=== PATIENT | female | born 1945 | race Caucasian/White ===

== ENCOUNTER 2017-08-25 15:09 | Observation (INO) ==
[2017-08-25] MEDS ORDERED: Ipratropium/Albuterol Neb 3 ML IH ONE (15:37)
[2017-08-25] MEDS ORDERED: 0.9 % Sodium Chloride 1,000 ML IVC ONE (15:38)
[2017-08-25] MEDS ORDERED: MethylPREDNISolone 40 MG/ML VIAL IVP ONE (15:40)
--- NOTE | 2017-08-25 15:41 | Emergency Department Note ---
Disposition Clinical Impression: COPD exacerbation Disposition: Admitted As Inpatient Condition: Fair Time of Disposition: 17:07 General Adult HPI - General Chief complaint: ED Upper Respiratory Infection Stated complaint: low O2, sent from urgent care Time Seen by Provider: 08/25/17 15:26 Source: patient Mode of arrival: ambulatory Limitations: no limitations Nursing Notes Reviewed: Yes Vital Signs Reviewed: Yes - History of Present Illness HPI Narrative: 72-year-old female with former history of smoking 3 years ago presents for evaluation of cough and shortness of breath. Patient was seen in urgent care prior to arrival. Patient was evaluated there for 1 week's worth of cough noted a yellow productive. Subjective fevers over the past week. No nausea or vomiting. No URI symptoms. Denying any chest pain. Patient does feel short of breath. Patient states she has no action at home. At the urgent care the patient received steroids as well as a breathing treatment. Patient also had a negative flu swab. Pain Scale: 0 - Related Data Home Medications Medication Instructions Recorded Confirmed Aspirin 81 mg PO DAILY 04/29/15 07/16/16 Ramipril [Altace] 10 mg PO DAILY 04/29/15 07/16/16 Folic Acid 08/25/17 Methotrexate 08/25/17 08/25/17 Allergies Allergy/AdvReac Type Severity Reaction Status Date / Time No Known Allergies Allergy Verified 08/25/17 13:07 All systems ED: reviewed and negative except as stated. Constitutional: Reports: as per HPI, fever Eyes: Reports: as per HPI ENT ED: Reports: as per HPI Cardiovascular: Reports: as per HPI. Denies: chest pain Respiratory: Reports: as per HPI, cough, dyspnea, sputum production Gastrointestinal: Reports: as per HPI Genitourinary: Reports: as per HPI Musculoskeletal: Reports: as per HPI Integumentary: Reports: as per HPI Neurological: Reports: as per HPI Psychiatric: Reports: as per HPI Endocrine: Reports: as per HPI Hematological/Lymphatic: Reports: as per HPI Past Medical History - Past Medical History Attestation: Yes The following information was validated with the patient. Medical history: Reports: non-contributory, hypertension Surgical history: Reports: appendectomy Psychiatric history: Reports: no psych history - Social History Smoking Status: Former smoker Smokeless Tobacco Status: No Alcohol use: Reports: none Drug use: Reports: none Physical Exam - General Limitations: no limitations General appearance: alert, in no apparent distress - Head Head exam: atraumatic, normocephalic, normal inspection - Eye Eye exam: Present: normal appearance, PERRL, EOMI - ENT ENT exam: normal exam, normal oropharynx, mucous membranes moist - Neck Neck exam: Present: normal inspection, full ROM, trachea midline - Chest Chest inspection: Present: normal inspection, symmetric chest wall rise - Respiratory Respiratory exam: Present: accessory muscle use, prolonged expiratory phase, other (Diffusely diminished breath sounds) - Cardiovascular Cardiovascular exam: Present: normal rhythm, tachycardia. Absent: systolic murmur - Abdominal Exam Abdominal exam: Present: soft, Non-Tender. Absent: tenderness, distention, guarding, rebound, rigidity - Extremities Exam Extremities exam: Present: normal inspection, full ROM. Absent: tenderness, pedal edema - Back Exam Back exam: Present: normal inspection, full ROM. Absent: tenderness - Neurological Exam Neurological exam: Present: alert, oriented X3 - Skin Skin exam: Present: warm, dry, intact, normal color Course Course Narrative: Patient seen and examined. Patient is hypoxic on room air. Patient requiring oxygen supplementation. Patient will get basic lab work, EKG. Chest x-ray was obtained at urgent care. Patient also negative flu swab. Patient will require admission for further respiratory support monitoring giving her history and her oxygen requirement. - Reevaluation(s) Reevaluation #1: Patient seen and examined. Patient's breathing seems less labored. Still has diminished lung sounds throughout. Time: 17:06 Vital Signs Temperature 98.8 F 08/25/17 15:18 Pulse Rate 130 08/25/17 15:18 Respiratory Rate 22 08/25/17 15:18 Blood Pressure 116/54 08/25/17 15:18 O2 Sat by Pulse Oximetry 87 08/25/17 15:18 Temperature 98.8 F 08/25/17 15:18 Pulse Rate 120 08/25/17 17:34 Respiratory Rate 13 08/25/17 17:34 Blood Pressure 101/48 08/25/17 17:34 O2 Sat by Pulse Oximetry 94 08/25/17 17:34 Oxygen Delivery Oxygen Delivery Nasal Cannula Medical Decision Making - [facility] Narrative Medical decision making narrative: 72-year-old female patient for evaluation of dyspnea. Notes to be a week's worth of symptoms. Patient does have a history of smoking in the past. Symptoms are consistent with a COPD exacerbation. Patient's EKG reveals multifocal atrial tachycardia. Patient was given 2 g of magnesium as well as a liter of crystalloid. Patient was treated with nebs as well as steroids. Patient's chest x-ray obtained urgent care prior to arrival shows no acute findings. Given the patient's symptoms and a productive cough she was started on Levaquin. Patient did not have nausea requirement at home however is requiring supplemental oxygen. Patient will be admitted to the hospital service for further evaluation moderate regarding her respiratory status. - Lab Data Lab results reviewed: Yes I reviewed the patient's lab results. Result diagrams: 08/25/17 15:54 08/25/17 15:54 Lab Results 08/25/17 08/25/17 08/25/17 Range/Units 15:54 15:54 15:54 WBC 12.7 H (4.3-11.1) K/mcL RBC 4.40 (3.82-4.97) M/mcL Hgb 13.8 (11.5-15.4) g/dL Hct 43.6 (35.3-44.9) % MCV 99.1 (83.0-100.0) fL MCH 31.4 (28.0-33.3) pg MCHC 31.7 (31.6-35.5) g/dL RDW 13.2 (11.5-14.5) % Plt Count 326 (140-400) K/mcL MPV 9.8 (9.4-12.4) fL Immature Gran % 0.6 (0-4) % Seg Neutrophils % 83.8 % Lymphocytes % 7.2 % Monocytes % 7.2 % Eosinophils % 0.9 % Basophils % 0.3 % Neutrophils # 10.7 H (1.6-8.9) K/mcL Lymphocytes # 0.9 (0.6-4.6) K/mcL Monocytes # 0.9 (0.0-1.3) K/mcL Eosinophils # 0.1 (0.0-0.6) K/mcL Basophils # 0.0 (0.0-0.2) K/mcL Immature Plt Fraction 3.8 (1.1-6.1) % Sodium 136 (136-145) mEq/L Potassium 3.7 (3.5-5.1) mEq/L Chloride 100 (98-107) mEq/L Carbon Dioxide 26 (23-29) mEq/L BUN 20 (8-23) mg/dL Creatinine 1.14 (0.60-1.20) mg/dL Est GFR ( Amer) 57 L (> 60) Est GFR (Non-Af Amer) 47 L (> 60) BUN/Creatinine Ratio 18 (6-26) Glucose 148 H (70-105) mg/dL Calculated Osmolality 287 (280-300) Calcium 9.1 (8.6-10.3) mg/dL Troponin I < 0.03 (< 0.04) ng/mL B-Natriuretic Peptide (Less than 100) pg/mL 08/25/17 Range/Units 15:54 WBC (4.3-11.1) K/mcL RBC (3.82-4.97) M/mcL Hgb (11.5-15.4) g/dL Hct (35.3-44.9) % MCV (83.0-100.0) fL MCH (28.0-33.3) pg MCHC (31.6-35.5) g/dL RDW (11.5-14.5) % Plt Count (140-400) K/mcL MPV (9.4-12.4) fL Immature Gran % (0-4) % Seg Neutrophils % % Lymphocytes % % Monocytes % % Eosinophils % % Basophils % % Neutrophils # (1.6-8.9) K/mcL Lymphocytes # (0.6-4.6) K/mcL Monocytes # (0.0-1.3) K/mcL Eosinophils # (0.0-0.6) K/mcL Basophils # (0.0-0.2) K/mcL Immature Plt Fraction (1.1-6.1) % Sodium (136-145) mEq/L Potassium (3.5-5.1) mEq/L Chloride (98-107) mEq/L Carbon Dioxide (23-29) mEq/L BUN (8-23) mg/dL Creatinine (0.60-1.20) mg/dL Est GFR ( Amer) (> 60) Est GFR (Non-Af Amer) (> 60) BUN/Creatinine Ratio (6-26) Glucose (70-105) mg/dL Calculated Osmolality (280-300) Calcium (8.6-10.3) mg/dL Troponin I (< 0.04) ng/mL B-Natriuretic Peptide 145 H (Less than 100) pg/mL - Radiology Data Radiology results reviewed: Yes I reviewed the patient's radiology results. XR/XR chest 2V IMPRESSION: Emphysema with bilateral lower lobe vascular crowding. No convincing evidence of superimposed acute process. D/ / 08/25/2017 14:11:21 Jasson Larkin MD / prerna - EKG Data EKG #1 EKG attestation: Yes I reviewed and interpreted this EKG. EKG shows normal: sinus rhythm Rate: tachycardia Rhythm: other (MAT) Mchenry/QRS: LAHB/LAFB P waves: BRENNAN Interpretation: no acute changes, other (MAT) S.B.A.R. - S.B.A.RBentley Situation: Demographics Background: Presenting Complaint Assessment: Vital Signs, Course and respsone to treatment, Patient/Family Expectation Recommendation: Barrier(s) to disposition, Recommendation based on pending studies, treatments, or consults S.B.A.RBentley Report Given to: Dr. Kirill Stinson Repor Time: 17:19 Attestation Statement - Attestation Attestation: I examined this patient and my medical decision-making was reviewed with the Resident Physician. I agree with the documented findings, disposition and treatment plan as described except to the extent set forth below. 72-year-old female sent to the emergency department from urgent care because of coughing and dyspnea. She presented to the urgent care with cough, dyspnea and hypoxia. She received aerosols with significant improvement but continued with hypoxia. Denies any chest pain. No fevers or chills. Cough is nonproductive. No recent long-distance travel or periods of prolonged immobilization. No recent surgeries. Patient is awake alert and interactive. Minimal tachypnea. Oropharynx clear. Membranes moist. Chest is with diminished breath sounds bilaterally. No focal rhonchi or consolidation. Cardiac exam tachycardic and intermittently irregular. Frequent ectopy. Abdomen soft, nondistended and nontender. Extremities warm and dry without asymmetric edema. No calf tenderness. Chest x-ray consistent with COPD but no infiltrate. Received sequential DuoNeb treatments as well as IV magnesium continues with hypoxia requiring supplemental oxygen. She will be admitted for supplemental oxygen and further treatment of her COPD exacerbation.
[2017-08-25] MEDS ORDERED: Levofloxacin 750 MG/150 ML 750 MG/150 ML BAG IVPB ONE (15:42)
[2017-08-25 16:04] LABS: Basophils % 0.3 %; Eosinophils # 0.1 K/mcL (0.0-0.6); Eosinophils % 0.9 %; Hematocrit 43.6 % (35.3-44.9); Hemoglobin 13.8 g/dL (11.5-15.4); Immature Granulocytes % 0.6 % (0-4); Immature Platelets 3.8 % (1.1-6.1); Lymphocytes # 0.9 K/mcL (0.6-4.6); Lymphocytes % 7.2 %; Mean Corpuscular HGB Conc 31.7 g/dL (31.6-35.5); Mean Corpuscular Hemoglobin 31.4 pg (28.0-33.3); Mean Corpuscular Volume 99.1 fL (83.0-100.0); Mean Platelet Volume 9.8 fL (9.4-12.4); Monocytes # 0.9 K/mcL (0.0-1.3); Monocytes % 7.2 %; Neutrophils # 10.7 K/mcL (1.6-8.9); Platelet Count 326 K/mcL (140-400); Red Cell Distribution Width 13.2 % (11.5-14.5); Segmented Neutrophils % 83.8 %
[2017-08-25 16:44] LABS: Calcium 9.1 mg/dL (8.6-10.3); Potassium 3.7 mEq/L (3.5-5.1)
[2017-08-25] MEDS ORDERED: Naloxone 0.4 MG/ML INJ IVP PRN (20:06)
[2017-08-25] MEDS ORDERED: Acetaminophen 325 MG TABLET PO PRN (20:06)
[2017-08-25] MEDS ORDERED: Ipratropium/Albuterol Neb 3 ML IH PRN (20:13)
--- NOTE | 2017-08-25 20:21 | Internal Med History&Physical ---
Date of Encounter: 08/25/17 Time of Encounter: 19:30 Assessment and Plan (1) Rheumatoid arthritis Current visit: Yes Status: Acute Stable, cont home medication and f/u as outpatient. Pt clearly told me she is not chronic steroid user. Qualifiers: Rheumatoid arthritis location: unspecified site Rheumatoid factor presence : unspecified presence Qualified Code(s): M06.9 - Rheumatoid arthritis, unspecified (2) DVT prophylaxis Current visit: Yes Status: Acute Heparin SC (3) COPD exacerbation Current visit: Yes Status: Acute Pt has increased cough and SOB, CXR shows emphasemous changes, no wheezes when I saw her. Never diagnosed as COPD but has hx of smoking. - COPD exacerbation vs acute bronchitis vs early pneumonia - Place pt on abx, steroid and bronchidilator - O2 supportive treatment. - Robitussin for cough. - Track sputum culture (4) Hypoxia Current visit: No Status: Acute Management as above. Evaluate the needs of home O2 upon discharge. Internal Medicine - H&P: HPI Chief complaint: SOB Admitted From: Home Plans for Post Hospital Care: Home History of present illness: Ms. Cadena is a 72 year old female with Hx of RA on MTX present to ER for SOB and cough. Pt said she is sick in last week, with runny nose, cough, and yellowish sputum. Pt has SOB as well. Pt denies sore throat, chest pain, nausea, or diaphoresis. She went to urgent care today, Flu test negative, CXR shows emphosemous changes. Pt was found low SpO2 at 82-83%. She was treated with solumendral and duoneb and admitted for further management. Past Med Surg Social Fam HX - Past Medical History Medical history: non-contributory, hypertension Psychiatric history: no psych history - Past Surgical History Surgical History: appendectomy - Social History Smoking Status: Former smoker Smokeless Tobacco Status: No Alcohol use: none Drug use: none - Family History Mother History Unknown: Yes Internal Medicine - H&P: Meds Aspirin 81 mg PO DAILY 04/29/15 [History] Ramipril [Altace] 10 mg PO DAILY 04/29/15 [History] Folic Acid 08/25/17 [History] Methotrexate 08/25/17 [History] 3 Allergy/AdvReac Type Severity Reaction Status Date / Time No Known Allergies Allergy Verified 01/21/18 13:07 All Systems PM: A 10-system review of systems was performed and is negative for pertinent findings except as documented above in the HPI. - Constitutional Vitals: Temp Pulse Resp BP Pulse Ox 98.8 F 120 22 99/49 94 08/25/17 15:18 08/25/17 17:34 08/25/17 19:02 08/25/17 19:02 08/25/17 17:34 General appearance: Present: A&O X 3, no acute distress, answers questions appropriately - Head Head exam: Present: atraumatic, normocephalic - Eye Eye exam: Present: PERRL, conjuntiva pink, sclera anicteric Pupils: Present: PERRL - Neck Neck exam general surgery: Present: supple, trachea midline. Absent: lymphadenopathy - Respiratory Respiratory exam: Present: CTAB. Absent: accessory muscle use, rales, rhonchi, wheezes Additional comments: Coarse breath sound B/L no wheezes - Cardiovascular Cardiovascular exam: Present: RRR, +S1, +S2. Absent: diastolic murmur, gallop, rubs, systolic murmur - GI/Abdominal GI/Abdominal exam: Present: normal bowel sounds, soft, no peritoneal signs. Absent: distended, tenderness - Extremities Exam Extremities exam: Present: warm, radial pulses palpable and symmetrical. Absent : calf tenderness, cyanotic, pedal edema - Neurological Exam Neurological exam: Present: CN II-XII intact, oriented X3, no focal deficits. Absent: pronater drift, facial droop, speech deficit - Skin Skin exam: Present: dry, intact Internal Med - H&P Results - Labs CBC & Chem 7: 08/25/17 15:54 08/25/17 15:54 - EKG Data -: EKG Interpreted by Myself (With multiple PACs) EKG shows normal: sinus rhythm Rate: tachycardia
[2017-08-25] MEDS: Ipratropium/Albuterol Neb 3 ML IH SCH (21:22)
[2017-08-26] MEDS: Ipratropium/Albuterol Neb 3 ML IH SCH ×4 (04:50→22:49)
[2017-08-26 06:08] LABS: Basophils % 0.1 %; Hematocrit 41.3 % (35.3-44.9); Hemoglobin 12.8 g/dL (11.5-15.4); Immature Granulocytes % 0.7 % (0-4); Lymphocytes # 0.6 K/mcL (0.6-4.6); Lymphocytes % 6.1 %; Monocytes # 0.3 K/mcL (0.0-1.3); Monocytes % 2.9 %; Neutrophils # 9.4 K/mcL (1.6-8.9); Platelet Count 291 K/mcL (140-400); Red Blood Count 4.13 M/mcL (3.82-4.97); Red Cell Distribution Width 13.3 % (11.5-14.5); Segmented Neutrophils % 90.2 %
[2017-08-26] MEDS: *HR* Heparin 5,000 UNIT/ML VIAL SQ SCH ×2 (06:16→18:05)
[2017-08-26 06:21] LABS: BUN/Creatinine Ratio 25 (6-26); Blood Urea Nitrogen 20 mg/dL (8-23); Calcium 8.9 mg/dL (8.6-10.3); Carbon Dioxide 28 mEq/L (23-29); Chloride 103 mEq/L (98-107); Glucose 152 mg/dL (70-105); Magnesium 2.7 mg/dL (1.6-2.6); Osmolality,Calculated 290 (280-300); Potassium 4.4 mEq/L (3.5-5.1); Sodium 137 mEq/L (136-145); eGFR For African Americans > 60 (> 60); eGFR For Non-African Americans > 60 (> 60)
[2017-08-26] MEDS: predniSONE 20 MG TABLET PO SCH (07:52)
[2017-08-26] MEDS: Aspirin 81 MG TAB.CHEW PO SCH (07:52)
--- NOTE | 2017-08-26 09:00 | Internal Med Progress Note ---
Date of Encounter: 08/26/17 Time of Encounter: 09:00 - Assessment and plan (1) Acute respiratory failure with hypoxia Current Visit: Yes Status: Acute Assessment and plan: presented to urgent care with c/o SOB. Was found to be hypoxic on room air with oxygen saturations 78%. Oxygenation improved with supplemental oxygen. Suspect multifactorial with likely underlying COPD, possible bronchitis and mild fluid overload. She was tachy with HRs in 130s on arrival, BP soft/borderline. Check CTA to rule out pulmonary embolism, echo pending to assess EF. Continue treating underlying causes. Wean supplemental oxygen as able (2) COPD exacerbation Current Visit: Yes Status: Acute Assessment and plan: no official diagnosis of COPD but suspect with long hx tobacco use. Symptomatic with shortness of breath and wheezing. Rapid flu swab reportedly negative at outside urgent care. Continue IV Levaquin, steroids. Resp PCR, urinary antigens, repeat CXR pending (3) Hypertension Current Visit: Yes Status: Acute Assessment and plan: per hx. BP is been soft/borderline. Holding home TAMIE. Resume his BP allows. Qualifiers: Hypertension type: essential hypertension Qualified Code(s): I10 - Essential (primary) hypertension (4) Rheumatoid arthritis Current Visit: Yes Status: Acute Assessment and plan: per hx. Sx's stable. Cont home folic acid and methotrexate once home medication list verified Qualifiers: Rheumatoid arthritis location: unspecified site Rheumatoid factor presence : unspecified presence Qualified Code(s): M06.9 - Rheumatoid arthritis, unspecified (5) DVT prophylaxis Current Visit: Yes Status: Acute Assessment and plan: heparin - Subjective Interval history: Seen and examined at bedside, patient is new to me. Information obtained from chart review and patient report. Still feels SOB but overall improved. Says she has been sick for the last week, has felt weak, tired and SOB. Does not wear oxygen at home. No sick contacts that she is aware of. No CP. - Constitutional Vitals: Temp Pulse Resp BP Pulse Ox 97.5 F L 81 17 109/62 92 08/26/17 07:56 08/26/17 07:56 08/26/17 07:56 08/26/17 07:56 08/26/17 07:56 General appearance: Present: mild distress, A&O X 3, answers questions appropriately - Head Head exam: Present: atraumatic, normocephalic - Eye Eye exam: Present: PERRL, conjuntiva pink, sclera anicteric Pupils: Present: PERRL - Neck Neck exam general surgery: Present: supple, trachea midline. Absent: lymphadenopathy - Respiratory Respiratory exam: Present: rales. Absent: accessory muscle use, rhonchi, wheezes - Cardiovascular Cardiovascular exam: Present: +S1, +S2, tachycardia. Absent: diastolic murmur, gallop, rubs, systolic murmur - GI/Abdominal GI/Abdominal exam: Present: normal bowel sounds, soft, no peritoneal signs. Absent: distended, tenderness - Extremities Exam Extremities exam: Present: warm, radial pulses palpable and symmetrical. Absent : calf tenderness, cyanotic, pedal edema - Neurological Exam Neurological exam: Present: CN II-XII intact, oriented X3, no focal deficits. Absent: pronater drift, facial droop, speech deficit - Skin Skin exam: Present: dry, intact Internal Medicine: Result - Labs CBC & Chem 7: 08/26/17 05:51 08/26/17 05:51 Labs: Short CBC 08/26/17 Range/Units 05:51 WBC 10.4 (4.3-11.1) K/mcL Hgb 12.8 (11.5-15.4) g/dL Hct 41.3 (35.3-44.9) % Plt Count 291 (140-400) K/mcL Neutrophils # 9.4 H (1.6-8.9) K/mcL BMP 08/26/17 05:51 Sodium 137 Potassium 4.4 Chloride 103 Carbon Dioxide 28 BUN 20 Creatinine 0.79 Glucose 152 H Calcium 8.9 - Impressions Impressions Chest X-Ray 08/26/17 07:22 IMPRESSION: Slight crowding of the pulmonary vasculature versus atelectasis otherwise no acute process. D/ / Hollis Sharma MD / Hollis Sharma MD Interpreting Provider: Hollis Sharma MD Consult Discharge Plan - Plan Referrals: Teddy Hernadez DO [Primary Care Provider] -
[2017-08-26] MEDS: Levofloxacin 750 MG/150 ML 750 MG/150 ML BAG IVPB SCH (15:47)
[2017-08-27] MEDS ORDERED: Melatonin 3 MG TABLET PO ONE (00:23)
[2017-08-27] MEDS: Ipratropium/Albuterol Neb 3 ML IH SCH ×4 (04:45→22:42)
[2017-08-27] MEDS: *HR* Heparin 5,000 UNIT/ML VIAL SQ SCH ×2 (09:38→17:38)
[2017-08-27] MEDS: predniSONE 20 MG TABLET PO SCH (09:39)
[2017-08-27] MEDS: Aspirin 81 MG TAB.CHEW PO SCH (09:39)
--- NOTE | 2017-08-27 10:09 | Internal Med Progress Note ---
Date of Encounter: 08/27/17 Time of Encounter: 10:06 - Assessment and plan (1) Community acquired pneumonia Current Visit: Yes Status: Acute Assessment and plan: CTA chest demonstrated small focus of bronchial pneumonia and right upper lobe afebrile, WBC 10.4, SPO2 96% on 2L BNP 145 Physical exam: decreased air flow and right upper lobe, no wheezes, rales or rhonchi, equal chest expansion plan continue prednisone day 2 continue Levaquin due 2 sputum culture, Legionella, respiratory panel, strep pneumonia pending continued duonebs supplemental oxygen is needed Qualifiers: Laterality: right Lung location: upper lobe of lung Qualified Code(s): J18.1 - Lobar pneumonia, unspecified organism (2) Acute respiratory failure with hypoxia Current Visit: Yes Status: Acute Assessment and plan: She presented with acute respiratory failure with hypoxia. This was likely secondary to pneumonia. For one week duration she is having a productive cough, shortness of breath, chills. She went to the urgent care whom insisted she go to the ED due to low oxygen saturation. In the ED she had oxygen saturation 82% which improved with supplemental oxygen. CXR shows slight crowding of pulmonary vasculature vs atelectasis CTA chest demonstrated small focus of bronchial pneumonia and right upper lobe TTE showed LVEF 65 to 70%, moderate to severe pulmonary hypertension, RVSP 65mmHg, moderate left diastolic dysfunction afebrile, WBC 10.4, SPO2 96% on 2L BNP 145 plan see plan above upon discharge have patient follow-up with [facility] for PFT testing and pulmonary hypertension. Order a sleep study for outpatient (3) Rheumatoid arthritis Current Visit: Yes Status: Acute Assessment and plan: History of rheumatoid arthritis taking methotrexate and folic acid. Stable continue home medications Qualifiers: Rheumatoid arthritis location: unspecified site Rheumatoid factor presence : unspecified presence Qualified Code(s): M06.9 - Rheumatoid arthritis, unspecified (4) Hypertension Current Visit: Yes Status: Acute Assessment and plan: Patient has a history of hypertension taking ramipril BP 104/55 holding BP meds due to lower blood pressure Qualifiers: Hypertension type: essential hypertension Qualified Code(s): I10 - Essential (primary) hypertension (5) DVT prophylaxis Current Visit: Yes Status: Acute Assessment and plan: heparin sq - Subjective Interval history: She is awake alert and oriented x3. She is sitting up on the side of the bed. She reports she is still short of breathe and has a cough with sputum production. She denies fever, chills, nausea, vomiting, diarrhea. - Constitutional Vitals: Temp Pulse Resp BP Pulse Ox 98.1 F 84 16 104/55 93 08/27/17 07:57 08/27/17 07:57 08/27/17 07:57 08/27/17 07:57 08/27/17 09:45 General appearance: Present: mild distress, A&O X 3, answers questions appropriately Exam: Gen.: Vitals noted. No acute distress. AAOx3 HEENT: oropharynx clear, Normocephalic, atraumatic Cardiac: RRR, no murmur, +S1/S2 Pulmonary: decreased air flow and right upper lobe, no wheezes, rales or rhonchi , equal chest expansion Abdomen: soft, nontender, Bowel sounds noted, no guarding MSK: ROM intact, no joint swelling noted Extremities: no BLE edema, nontender calf, no cyanosis or clubbing Neuro: A&Ox3, moves all extremities, no focal deficits Psych: Appropriate mood and behavior Internal Medicine: Result - Labs CBC & Chem 7: 08/26/17 05:51 08/26/17 05:51 - Impressions Impressions Echocardiogram 08/26/17 08:58 Impressions: LVEF 65-70%. Normal LV chamber size, wall thickness and function. Moderate left ventricular diastolic dysfunction. Normal right ventricular structure and function. Moderate-severe pulmonary hypertension. Estimated RVSP is 56 mmHg. No significant valvular dysfunction. Left Ventricular Wall Motion: Rest Echo Findings All wall segments showed normal motion. Findings: Study Quality * Technically adequate exam. ECG Findings * Normal sinus rhythm. Left Ventricle * LVEF 65-70%. * Normal LV chamber size, wall thickness and function. * Moderate left ventricular diastolic dysfunction. Right Ventricle * Normal right ventricular structure and function. Left Atrium * Mild to moderately dilated left atrium. Right Atrium * Mild to moderately dilated right atrium. Interatrial Septum * Interatrial septum not well evaluated. Aortic Valve * Trileaflet aortic valve with normal function. * No aortic regurgitation. * No aortic stenosis. Mitral Valve * Normal mitral valve structure and function. * No mitral regurgitation. * No mitral stenosis. Tricuspid Valve * Normal tricuspid valve structure and function. * Trace tricuspid regurgitation. * Moderate-severe pulmonary hypertension. * Estimated RVSP is 56 mmHg. * Estimated RA pressure is 5 mmHg. Pulmonic Valve * Normal pulmonic valve structure and function. * Trace pulmonic regurgitation. Aorta * Normally sized aortic root. Pericardium * The pericardium appears normal. IVC * Normal IVC dimensions and inspiratory collapse. Pulmonary Artery * Normal visualized portions of the main pulmonary artery. Chest CTA 08/26/17 11:15 IMPRESSION: 1. No evidence of pulmonary embolism 2. Small focus of broncho pneumonia in the inferior right upper lobe D/ / Herbie Edward MD / Herbie Edward MD Interpreting Provider: Herbie Edward MD Consult Discharge Plan - Plan Referrals: Teddy Hernadez DO [Primary Care Provider] -
[2017-08-27] MEDS: Levofloxacin 750 MG/150 ML 750 MG/150 ML BAG IVPB SCH (17:00)
[2017-08-27 22:40] LABS: Adenovirus Not Detected (Not Detect); Bordetella Pertussis Not Detected (Not Detect); Chlamydophila pneumoniae Not Detected (Not Detect); Coronavirus 229E Not Detected (Not Detect); Coronavirus HKU1 Not Detected (Not Detect); Coronavirus NL63 Not Detected (Not Detect); Coronavirus OC43 Not Detected (Not Detect); Human Metapneumovirus Not Detected (Not Detect); Human Rhinovirus/Enterovirus Not Detected (Not Detect); Influenza A Subtype 2009 H1 Not Detected (Not Detect); Influenza A Untypeable Not Detected (Not Detect); Influenza B Not Detected (Not Detect); Mycoplasma pneumoniae Not Detected (Not Detect); Parainfluenza Virus 1 Not Detected (Not Detect); Parainfluenza Virus 2 Not Detected (Not Detect); Parainfluenza Virus 3 Not Detected (Not Detect); Parainfluenza Virus 4 Not Detected (Not Detect); Respiratory Syncytial Virus Not Detected (Not Detect)
[2017-08-28] MEDS: Ipratropium/Albuterol Neb 3 ML IH SCH ×4 (03:46→21:41)
[2017-08-28] MEDS: *HR* Heparin 5,000 UNIT/ML VIAL SQ SCH ×2 (05:19→16:55)
--- NOTE | 2017-08-28 09:57 | Internal Med Progress Note ---
<Yashira Azar - Last Filed: 08/28/17 09:55> Date of Encounter: 08/28/17 Time of Encounter: 09:50 - Assessment and plan (1) Community acquired pneumonia Current Visit: Yes Status: Acute Assessment and plan: CTA chest demonstrated small focus of bronchial pneumonia and right upper lobe afebrile, SPO2 96% on room air Physical exam: decreased air flow bilaterally, no wheezing, rales or rhonchi, equal chest expansion Legionella, respiratory panel, strep pneumonia all negative plan most likely discharge tomorrow continue prednisone day 4 continue Levaquin due 4 sputum culture pending continued duonebs supplemental oxygen is needed Qualifiers: Laterality: right Lung location: upper lobe of lung Qualified Code(s): J18.1 - Lobar pneumonia, unspecified organism (2) Pulmonary hypertension Current Visit: Yes Status: Acute Assessment and plan: Newly diagnosed pulmonary hypertension TTE showed LVEF 65 to 70%, moderate to severe pulmonary hypertension, RVSP 65mmHg, moderate left diastolic dysfunction afebrile, SPO2 96% on room air BNP 145 plan upon discharge have patient follow-up with consumer loan officer for PFT testing and pulmonary hypertension. Order a sleep study for outpatient (3) Acute respiratory failure with hypoxia Current Visit: Yes Status: Acute Assessment and plan: Resolved She presented with acute respiratory failure with hypoxia. This was likely secondary to pneumonia. For one week duration she is having a productive cough, shortness of breath, chills. She went to the urgent care whom insisted she go to the ED due to low oxygen saturation. In the ED she had oxygen saturation 82% which improved with supplemental oxygen. CXR shows slight crowding of pulmonary vasculature vs atelectasis CTA chest demonstrated small focus of bronchial pneumonia and right upper lobe TTE showed LVEF 65 to 70%, moderate to severe pulmonary hypertension, RVSP 65mmHg, moderate left diastolic dysfunction (4) Rheumatoid arthritis Current Visit: Yes Status: Acute Assessment and plan: History of rheumatoid arthritis taking methotrexate and folic acid. Stable continue home medications Qualifiers: Rheumatoid arthritis location: unspecified site Rheumatoid factor presence : unspecified presence Qualified Code(s): M06.9 - Rheumatoid arthritis, unspecified (5) Hypertension Current Visit: Yes Status: Acute Assessment and plan: Patient has a history of hypertension taking ramipril BP stable holding BP meds due to lower blood pressure Qualifiers: Hypertension type: essential hypertension Qualified Code(s): I10 - Essential (primary) hypertension (6) DVT prophylaxis Current Visit: Yes Status: Acute Assessment and plan: heparin sq - Subjective Interval history: She is awake alert and oriented x3. She is sitting up on the side of the bed eating breakfast. She reports shortness of breath has improved but is still present. She still has a cough with sputum production. She denies fever, chills, nausea, vomiting, diarrhea. She has been notified of echocardiogram findings of pulmonary hypertension and that she will need to follow up with a consumer loan officer, need outpatient PFT and sleep study. - Constitutional Vitals: Temp Pulse Resp BP Pulse Ox 98.3 F 89 16 124/75 95 08/28/17 07:13 08/28/17 07:13 08/28/17 07:13 08/28/17 07:13 08/28/17 07:13 General appearance: Present: mild distress, A&O X 3, answers questions appropriately Exam: Gen.: Vitals noted. No acute distress. AAOx3 HEENT: oropharynx clear, Normocephalic, atraumatic Neck: Supple. No adenopathy. Cardiac: RRR, no murmur, +S1/S2 Pulmonary: decreased breath sounds bilaterally, no wheezes, rales or rhonchi, equal chest expansion Abdomen: soft, nontender, Bowel sounds noted, no guarding Extremities: no BLE edema, nontender calf, no cyanosis or clubbing Neuro: A&Ox3, moves all extremities, no focal deficits Psych: Appropriate mood and behavior Internal Medicine: Result - Labs CBC & Chem 7: 08/26/17 05:51 08/26/17 05:51 Consult Discharge Plan - Plan Referrals: Teddy Hernadez DO [Primary Care Provider] - <Alan Gill - Last Filed: 08/28/17 12:51> Date of Encounter: 08/28/17 - Constitutional Vitals: Temp Pulse Resp BP Pulse Ox 98.1 F 97 18 106/66 95 08/28/17 11:23 08/28/17 11:23 08/28/17 11:23 08/28/17 11:23 08/28/17 11:23 Internal Medicine: Result - Labs CBC & Chem 7: 08/28/17 10:10 08/26/17 05:51 Labs: Short CBC 08/28/17 Range/Units 10:10 WBC 11.3 H (4.3-11.1) K/mcL Hgb 13.3 (11.5-15.4) g/dL Hct 44.2 (35.3-44.9) % Plt Count 323 (140-400) K/mcL - Attending Attestation I personally interviewed and examined this patient. I agree with the findings, assessment and plan of Dr. Azar, Gen. medicine resident. Patient is improved. She does have significant pulmonary hypertension and we discussed the fact that she needs forward function tests to include DLCO and lung volumes as well as a sleep study to be performed as an outpatient. All else as outlined above.
[2017-08-28] MEDS: Aspirin 81 MG TAB.CHEW PO SCH (10:08)
[2017-08-28] MEDS: predniSONE 20 MG TABLET PO SCH (10:08)
[2017-08-28] MEDS: Folic Acid 1 MG TABLET PO SCH (10:08)
[2017-08-28] MEDS ORDERED: *HR* Methotrexate 2.5 MG TABLET PO SCH (10:16)
[2017-08-28 10:22] LABS: Hematocrit 44.2 % (35.3-44.9); Hemoglobin 13.3 g/dL (11.5-15.4); Mean Corpuscular HGB Conc 30.1 g/dL (31.6-35.5); Mean Corpuscular Hemoglobin 30.6 pg (28.0-33.3); Mean Corpuscular Volume 101.8 fL (83.0-100.0); Mean Platelet Volume 9.4 fL (9.4-12.4); Platelet Count 323 K/mcL (140-400); Red Blood Count 4.34 M/mcL (3.82-4.97); Red Cell Distribution Width 13.2 % (11.5-14.5)
[2017-08-28] MEDS: Levofloxacin 750 MG/150 ML 750 MG/150 ML BAG IVPB SCH (16:55)
--- NOTE | 2017-08-28 17:58 | Electrocardiograph Report ---
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
[2017-08-29] MEDS: Ipratropium/Albuterol Neb 3 ML IH SCH ×4 (04:47→22:14)
[2017-08-29 05:09] LABS: Hematocrit 39.3 % (35.3-44.9); Hemoglobin 12.1 g/dL (11.5-15.4); Mean Corpuscular HGB Conc 30.8 g/dL (31.6-35.5); Mean Corpuscular Hemoglobin 30.8 pg (28.0-33.3); Mean Platelet Volume 9.7 fL (9.4-12.4); Platelet Count 285 K/mcL (140-400); Red Blood Count 3.93 M/mcL (3.82-4.97)
[2017-08-29] MEDS: *HR* Heparin 5,000 UNIT/ML VIAL SQ SCH ×2 (05:36→17:37)
[2017-08-29 05:46] LABS: BUN/Creatinine Ratio 20 (6-26); Blood Urea Nitrogen 13 mg/dL (8-23); Calcium 8.5 mg/dL (8.6-10.3); Carbon Dioxide 35 mEq/L (23-29); Chloride 100 mEq/L (98-107); Glucose 195 mg/dL (70-105); Osmolality,Calculated 291 (280-300); Potassium 4.2 mEq/L (3.5-5.1); Sodium 138 mEq/L (136-145); eGFR For African Americans > 60 (> 60); eGFR For Non-African Americans > 60 (> 60)
[2017-08-29] MEDS: predniSONE 20 MG TABLET PO SCH (08:36)
[2017-08-29] MEDS: Folic Acid 1 MG TABLET PO SCH (08:36)
[2017-08-29] MEDS: Aspirin 81 MG TAB.CHEW PO SCH (08:36)
--- NOTE | 2017-08-29 15:02 | Internal Med Progress Note ---
<Yashira Azar - Last Filed: 08/29/17 15:00> Date of Encounter: 08/29/17 Time of Encounter: 10:15 - Assessment and plan (1) Community acquired pneumonia Current Visit: Yes Status: Acute Assessment and plan: CTA chest demonstrated small focus of bronchial pneumonia and right upper lobe afebrile, WBC WNL Physical exam: decreased air flow bilaterally but improved from previous days, no wheezing, rales or rhonchi, equal chest expansion sputum culture growing GPC Legionella, respiratory panel, strep pneumonia all negative plan most likely discharge tomorrow. Patient requested to stay one more day so that she could get her strength continue prednisone day 5 continue Levaquin due 5 continued duonebs supplemental oxygen is needed Qualifiers: Laterality: right Lung location: upper lobe of lung Qualified Code(s): J18.1 - Lobar pneumonia, unspecified organism (2) Pulmonary hypertension Current Visit: Yes Status: Acute Assessment and plan: Newly diagnosed pulmonary hypertension TTE showed LVEF 65 to 70%, moderate to severe pulmonary hypertension, RVSP 65mmHg, moderate left diastolic dysfunction afebrile, BNP 145 plan upon discharge have patient follow-up with technology support analyst for PFT testing (DLCO and lung volumes) and pulmonary hypertension, and sleep study outpatient (3) Acute respiratory failure with hypoxia Current Visit: Yes Status: Acute Assessment and plan: Resolved She presented with acute respiratory failure with hypoxia. This was likely secondary to pneumonia. For one week duration she is having a productive cough, shortness of breath, chills. She went to the urgent care whom insisted she go to the ED due to low oxygen saturation. In the ED she had oxygen saturation 82% which improved with supplemental oxygen. CXR shows slight crowding of pulmonary vasculature vs atelectasis CTA chest demonstrated small focus of bronchial pneumonia and right upper lobe TTE showed LVEF 65 to 70%, moderate to severe pulmonary hypertension, RVSP 65mmHg, moderate left diastolic dysfunction (4) Rheumatoid arthritis Current Visit: Yes Status: Acute Assessment and plan: History of rheumatoid arthritis taking methotrexate and folic acid. Stable continue home medications Qualifiers: Rheumatoid arthritis location: unspecified site Rheumatoid factor presence : unspecified presence Qualified Code(s): M06.9 - Rheumatoid arthritis, unspecified (5) Hypertension Current Visit: Yes Status: Acute Assessment and plan: Patient has a history of hypertension taking ramipril BP stable holding BP meds due to lower blood pressure Qualifiers: Hypertension type: essential hypertension Qualified Code(s): I10 - Essential (primary) hypertension (6) DVT prophylaxis Current Visit: Yes Status: Acute Assessment and plan: heparin sq - Subjective Interval history: She is awake alert and oriented x3. She was laying in bed comfortably. She reports that her breathing is at baseline and is no longer short of breath. She still has a cough with sputum production. She denies fever, chills, nausea, vomiting, diarrhea. - Constitutional Vitals: Temp Pulse Resp BP Pulse Ox 98.9 F 91 17 109/68 88 08/29/17 12:27 08/29/17 12:27 08/29/17 12:27 08/29/17 12:27 08/29/17 12:27 General appearance: Present: mild distress, A&O X 3, answers questions appropriately Exam: Gen.: Vitals noted. No acute distress. AAOx3 HEENT: oropharynx clear, Normocephalic, atraumatic Neck: Supple. No adenopathy. Cardiac: RRR, no murmur, +S1/S2 Pulmonary: CTA but with decreased breath sounds bilaterally, no wheezes, rales or rhonchi, equal chest expansion Abdomen: soft, nontender, Bowel sounds noted, no guarding Extremities: no BLE edema, nontender calf, no cyanosis or clubbing Neuro: A&Ox3, moves all extremities, no focal deficits Psych: Appropriate mood and behavior Internal Medicine: Result - Labs CBC & Chem 7: 08/29/17 04:06 08/29/17 04:06 Labs: Short CBC 08/29/17 Range/Units 04:06 WBC 9.2 (4.3-11.1) K/mcL Hgb 12.1 (11.5-15.4) g/dL Hct 39.3 (35.3-44.9) % Plt Count 285 (140-400) K/mcL BMP 08/29/17 04:06 Sodium 138 Potassium 4.2 Chloride 100 Carbon Dioxide 35 H BUN 13 Creatinine 0.66 Glucose 195 H Calcium 8.5 L Consult Discharge Plan - Plan Referrals: Teddy Hernadez DO [Primary Care Provider] - <Alan Gill - Last Filed: 08/29/17 15:41> Date of Encounter: 08/29/17 - Constitutional Vitals: Temp Pulse Resp BP Pulse Ox 98.9 F 91 17 109/68 88 08/29/17 12:27 08/29/17 12:27 08/29/17 12:27 08/29/17 12:27 08/29/17 12:27 Internal Medicine: Result - Labs CBC & Chem 7: 08/29/17 04:06 08/29/17 04:06 Labs: Short CBC 08/29/17 Range/Units 04:06 WBC 9.2 (4.3-11.1) K/mcL Hgb 12.1 (11.5-15.4) g/dL Hct 39.3 (35.3-44.9) % Plt Count 285 (140-400) K/mcL BMP 08/29/17 04:06 Sodium 138 Potassium 4.2 Chloride 100 Carbon Dioxide 35 H BUN 13 Creatinine 0.66 Glucose 195 H Calcium 8.5 L - Attending Attestation I personally interviewed and examined this patient. I agree with the findings, assessment, and plan of Dr. Azar, internal medicine resident area patient is markedly improved, anticipate discharge later today or tomorrow. She is completing antibiotics for her pneumonia. All else as outlined above, and per previous notes with regards to her pulmonary hypertension.
[2017-08-29] MEDS: Levofloxacin 750 MG/150 ML 750 MG/150 ML BAG IVPB SCH (15:35)
[2017-08-30] MEDS: Ipratropium/Albuterol Neb 3 ML IH SCH ×3 (04:28→16:56)
[2017-08-30] MEDS: *HR* Heparin 5,000 UNIT/ML VIAL SQ SCH (04:55)
[2017-08-30] MEDS ORDERED: levoFLOXacin 750 MG TABLET PO SCH (09:00)
[2017-08-30 10:09] VITALS: BP 113/74
--- NOTE | 2017-08-30 10:46 | Discharge Summary ---
<Yashira Aazr - Last Filed: 08/30/17 13:02> Date of Encounter: 08/30/17 Time of Encounter: 10:00 - Discharge Diagnosis (1) Community acquired pneumonia Priority: Primary Status: Acute Qualifiers: Laterality: right Lung location: upper lobe of lung Qualified Code(s): J18.1 - Lobar pneumonia, unspecified organism (2) Pulmonary hypertension Priority: Secondary Status: Acute (3) Acute respiratory failure with hypoxia Priority: Secondary Status: Acute (4) Rheumatoid arthritis Priority: Secondary Status: Acute Qualifiers: Rheumatoid arthritis location: unspecified site Rheumatoid factor presence : unspecified presence Qualified Code(s): M06.9 - Rheumatoid arthritis, unspecified (5) Hypertension Priority: Secondary Status: Acute Qualifiers: Hypertension type: essential hypertension Qualified Code(s): I10 - Essential (primary) hypertension (6) DVT prophylaxis Priority: Secondary Status: Acute - Discharge Medications Prescriptions: Albuterol Sulfate [Proair Hfa] 1 - 2 puff IH Q4-6H PRN #1 inh PRN Reason: Shortness Of Breath Budesonide/Formoterol 160/4.5 [Symbicort 160/4.5] 2 puff IH BIDR #1 hfa.aer.ad levoFLOXacin [Levaquin] 750 mg PO DAILY #1 tablet Home Medications: Aspirin 81 mg PO DAILY 04/29/15 [History] Ramipril [Altace] 10 mg PO DAILY 04/29/15 [History] Folic Acid 1 mg PO DAILY 08/25/17 [History] Methotrexate [Otrexup] 10 mg PO WE 08/25/17 [History] Albuterol Sulfate [Proair Hfa] 1 - 2 puff IH Q4-6H PRN #1 inh 08/30/17 [Rx] Budesonide/Formoterol 160/4.5 [Symbicort 160/4.5] 2 puff IH BIDR #1 hfa.aer.ad 08/30/17 [Rx] levoFLOXacin [Levaquin] 750 mg PO DAILY #1 tablet 08/30/17 [Rx] Allergies/Adverse Reactions: 3 Allergy/AdvReac Type Severity Reaction Status Date / Time No Known Allergies Allergy Verified 08/25/17 13:07 Date of admission: 08/25/17 17:43 Primary care physician: Teddy Jb [place] Discharging clinician: Alan R Gill Anticipated date of discharge: 08/30/17 - Patient Status Disposition: Home, Self-Care Condition: Fair Functional capacity at discharge: independent ambulation Overall status at discharge: patient is progressing back to baseline - Discharge Instructions Follow Up With: Kwasi Rubi MD [Partnered Physician] - 10/07/17 2:30 pm Teddy Hernadez DO [Primary Care Provider] - (Appointment has been webrequested. Our offices will call you with an appointment time and date, thank you. ) Additional Instructions: Finish antibiotic as prescribed use pro-air and handler as needed for shortness of breath use Symbicort as prescribed daily follow-up with pulmonology outpatient for pulmonary hypertension, PFT, sleep study. Follow-up with your PCP in a week or 2 return to the hospital she developed worsening shortness of breath, fever, chills, chest pain. - Diet and Activity Activity: resume usual activities as tolerated Diet: advance to your usual diet Hospital course: Ms. Cadena is a 72 year old female with PMHx of RA on MTX present to ER for SOB and cough. She said she was sick last week, with runny nose, cough, shortness of breath, and yellowish sputum. She presented with acute respiratory failure with hypoxia. For one week duration she is having a productive cough, shortness of breath, chills. She went to the urgent care whom insisted she go to the ED due to low oxygen saturation. In the ED she had oxygen saturation 82% which improved with supplemental oxygen. She denied sore throat, chest pain, nausea, or diaphoresis.This was likely secondary to pneumonia. COPD exacerbation was also suspected despite no diagnosis of COPD currently. She is a significant history of smoking, however she quit. CXR shows slight crowding of pulmonary vasculature vs atelectasis. CTA chest demonstrated small focus of bronchial pneumonia and right upper lobe. She was started on IV prednisone and Levaquin, continued duonebs, and supplemental oxygen is needed. Echo was ordered TTE showed LVEF 65 to 70%, moderate to severe pulmonary hypertension, RVSP 65mmHg, moderate left diastolic dysfunction. BNP 145. Sputum culture, Legionella, respiratory panel, strep pneumonia. The patient was informed to follow-up with medical records custodian for PFT testing and pulmonary hypertension, and sleep study for outpatient. Her dyspnea continued to improve. She is a febrile white blood cell count within normal limits. She has given antibiotics, pro-air inhaler, long-acting inhaled. She is also told to follow-up with her PCP. Return to the hospital she developed worsening shortness of breath, fever, chills, chest pain. The patient is alert and oriented times 3 with full capacity she stated clearly understand the treatment plan. - Time Spent with Patient Total time spent providing and/or coordinating discharge services: Greater than 30 minutes - Constitutional Vitals: Temp Pulse Resp BP Pulse Ox 97.7 F 89 16 113/74 93 08/30/17 10:08 08/30/17 10:08 08/30/17 10:32 08/30/17 10:08 08/30/17 10:32 General appearance: Present: mild distress, A&O X 3, answers questions appropriately Exam: Gen.: Vitals noted. No acute distress. AAOx3 HEENT: oropharynx clear, Normocephalic, atraumatic Neck: Supple. No adenopathy. Cardiac: RRR, no murmur, +S1/S2 Pulmonary: CTA but decreased breath sounds bilaterally, no wheezes, rales or rhonchi, equal chest expansion Abdomen: soft, nontender, Bowel sounds noted, no guarding Extremities: no BLE edema, nontender calf, no cyanosis or clubbing Neuro: A&Ox3, moves all extremities, no focal deficits Psych: Appropriate mood and behavior <Alan Gill - Last Filed: 08/30/17 14:31> Date of Encounter: 08/30/17 Date of admission: 08/25/17 17:43 Primary care physician: Teddy Muhammad [facility] course: Ms. Cadena is a 72 year old female - Time Spent with Patient Total time spent providing and/or coordinating discharge services: - Constitutional Vitals: Temp Pulse Resp BP Pulse Ox 97.7 F 89 16 113/74 93 08/30/17 10:08 08/30/17 10:08 08/30/17 10:32 08/30/17 10:08 08/30/17 10:32 - Attending Attestation I personally interviewed and examined this patient. I reviewed all labs and studies. I agree with the findings, assessment, and plan of Dr. Azar, internal medicine resident. Patient will continue on antibiotics for coronary artery pneumonia as outlined. He also had follow-up with pulmonary medicine for suspected COPD as well as pulmonary hypertension. Sleep study will also be arranged. Patient is otherwise doing well. Stable for discharge. 38 minutes spent on discharge and coordination of care.
[2017-08-30] MEDS: Folic Acid 1 MG TABLET PO SCH (10:50)
[2017-08-30] MEDS: Aspirin 81 MG TAB.CHEW PO SCH (10:51)
== END 2017-08-30 15:27 | disposition home or self-care (01) ==
LOC: EMEROO 15:09 → 2SOUTHHOLD 15:09 → 3BNU 08-27 18:01
PROVIDERS: ADMIT Internal Medicine; ATTEND Hospitalist

== ENCOUNTER 2020-07-28 14:17 | Inpatient (IN) ==
[2020-07-28 15:08] LABS: Hematocrit 47.1 % (35.3-44.9); Hemoglobin 15.3 g/dL (11.5-15.4); Immature Granulocytes % 0.3 % (0-4); Lymphocytes % 11.8 %; Mean Corpuscular HGB Conc 32.5 g/dL (31.6-35.5); Mean Corpuscular Hemoglobin 32.8 pg (28.0-33.3); Mean Corpuscular Volume 100.9 fL (83.0-100.0); Mean Platelet Volume 10.7 fL (9.4-12.4); Monocytes % 13.1 %; Platelet Count 158 K/mcL (140-400); Red Blood Count 4.67 M/mcL (3.82-4.97); Red Cell Distribution Width 13.8 % (11.5-14.5); Segmented Neutrophils % 74.5 %; White Blood Count 7.4 K/mcL (4.3-11.1)
[2020-07-28 15:09] LABS: Basophils % 0.3 %; Lymphocytes # 0.9 K/mcL (0.6-4.6); Neutrophils # 5.5 K/mcL (1.6-8.9)
[2020-07-28 15:20] LABS: INR 1.2; Prothrombin Time 13.6 Seconds (9.4-12.1)
[2020-07-28 15:22] LABS: Activated Partial Thrombo Time 28.2 Seconds (26.0-36.0)
[2020-07-28 15:26] LABS: Alanine Aminotransferase 26 Units/L (7-52); Albumin 3.8 g/dL (3.5-5.7); Albumin/Globulin Ratio 1.3 (1.1-2.2); Alkaline Phosphatase 71 Units/L (34-104); Aspartate Amino Transferase 29 Units/L (13-39); BUN/Creatinine Ratio 25 (6-26); Bilirubin,Direct 0.2 mg/dL (0.0-0.2); Bilirubin,Indirect 0.4 mg/dL (0.0-1.0); Bilirubin,Total 0.6 mg/dL (0.3-1.0); Blood Urea Nitrogen 20 mg/dL (8-23); Calcium 8.6 mg/dL (8.6-10.3); Carbon Dioxide 31 mEq/L (23-29); Chloride 100 mEq/L (98-107); Glucose 125 mg/dL (70-105); Lactate Dehydrogenase 182 Units/L (140-271); Osmolality,Calculated 286 (280-300); Phosphorous 2.3 mg/dL (2.7-4.5); Potassium 3.9 mEq/L (3.5-5.1); Sodium 136 mEq/L (136-145); Total Protein 6.8 g/dL (6.4-8.9); Troponin I < 0.03 ng/mL (< 0.04); eGFR For African Americans > 60 (> 60); eGFR For Non-African Americans > 60 (> 60)
[2020-07-28] MEDS ORDERED: Isovue-370 500 ML BOTTLE IVP ONE (15:33)
[2020-07-28 15:42] LABS: Ferritin 264 ng/mL (10-120)
[2020-07-28] MEDS ORDERED: Dexamethasone 4 MG/ML VIAL IVP ONE (15:50)
[2020-07-28] MEDS ORDERED: Azithromycin 500 MG in 0.9 % Sodium Chloride 250 ML IVPB ONE (15:50)
[2020-07-28] MEDS ORDERED: cefTRIAXone 1,000 MG in 0.9 % Sodium Chloride Mini Bag 100 ML IVPB ONE (15:50)
[2020-07-28] MEDS ORDERED: Ipratropium/Albuterol Neb 3 ML IH SCH (16:00)
[2020-07-28] MEDS ORDERED: cefTRIAXone 1,000 MG in Water for inj. (sterile) 10 ML IVP ONE (16:15)
[2020-07-28] MEDS ORDERED: 0.9 % Sodium Chloride 250 ML ONE (16:18)
[2020-07-28 16:56] LABS: C-Reactive Protein 49 mg/L (Less than 10)
[2020-07-28] MEDS ORDERED: Naloxone 0.4 MG/ML INJ IVP PRN ×2 (17:25→17:49)
[2020-07-28 18:05] LABS: Bacteria,Urine Few per hpf (None-Few); Bilirubin,Urine Negative (Negative); Blood,Urine Small (Negative); Clarity,Urine Clear (Clear); Color,Urine Light-Yellow (Yellow); Glucose,Urine (UA) Normal (Normal); Ketones,Urine Trace mg/dL (Negative); Leukocyte Esterase,Urine Negative (Negative); Mucus,Urine Few per lpf (None-Few); Nitrite,Urine Negative (Negative); Protein,Urine 30 mg/dL (Neg-Trace); Specific Gravity,Urine > 1.030 (1.010-1.025); Squamous Epithelial Cell,Urine Moderate per hpf (None-Few); Urobilinogen,Urine Normal (Normal); WBC,Urine 0-3 per hpf (0-3)
[2020-07-28] MEDS: *HR* Heparin 5,000 UNIT/ML VIAL SQ SCH (21:44)
[2020-07-29 06:11] LABS: Hematocrit 45.8 % (35.3-44.9); Hemoglobin 13.8 g/dL (11.5-15.4); Immature Granulocytes % 0.3 % (0-4); Lymphocytes # 0.4 K/mcL (0.6-4.6); Lymphocytes % 11.5 %; Mean Corpuscular HGB Conc 30.1 g/dL (31.6-35.5); Mean Corpuscular Hemoglobin 30.5 pg (28.0-33.3); Mean Corpuscular Volume 101.1 fL (83.0-100.0); Mean Platelet Volume 10.9 fL (9.4-12.4); Monocytes # 0.2 K/mcL (0.0-1.3); Monocytes % 5.5 %; Neutrophils # 2.9 K/mcL (1.6-8.9); Platelet Count 145 K/mcL (140-400); Red Blood Count 4.53 M/mcL (3.82-4.97); Red Cell Distribution Width 13.7 % (11.5-14.5); Segmented Neutrophils % 82.7 %
[2020-07-29 06:14] LABS: White Blood Count 3.5 K/mcL (4.3-11.1)
[2020-07-29 06:31] LABS: Alanine Aminotransferase 28 Units/L (7-52); Albumin 3.5 g/dL (3.5-5.7); Albumin/Globulin Ratio 1.3 (1.1-2.2); Alkaline Phosphatase 64 Units/L (34-104); Aspartate Amino Transferase 31 Units/L (13-39); BUN/Creatinine Ratio 31 (6-26); Bilirubin,Total 0.3 mg/dL (0.3-1.0); Blood Urea Nitrogen 19 mg/dL (8-23); Calcium 8.7 mg/dL (8.6-10.3); Carbon Dioxide 30 mEq/L (23-29); Chloride 102 mEq/L (98-107); Globulin 2.8 g/dL (2.4-3.5); Glucose 149 mg/dL (70-105); Osmolality,Calculated 291 (280-300); Phosphorous 3.9 mg/dL (2.7-4.5); Sodium 138 mEq/L (136-145); Total Protein 6.3 g/dL (6.4-8.9); eGFR For African Americans > 60 (> 60); eGFR For Non-African Americans > 60 (> 60)
[2020-07-29] MEDS: *HR* Heparin 5,000 UNIT/ML VIAL SQ SCH ×2 (06:52→18:07)
[2020-07-29] MEDS: Aspirin Enteric Coated 81 MG Tablet PO SCH (08:04)
[2020-07-29] MEDS: Ascorbic Acid 500 MG TABLET PO SCH (08:04)
[2020-07-29] MEDS: Dexamethasone Sodium Phos/PF 10 MG/ML VIAL IVP SCH (08:05)
[2020-07-29] MEDS: Folic Acid 1 MG TABLET PO SCH (08:05)
[2020-07-29] MEDS ORDERED: lisinopriL 20 MG TABLET PO SCH (09:00)
[2020-07-29] MEDS ORDERED: cefTRIAXone 2,000 MG in 0.9 % Sodium Chloride Mini Bag 100 ML IVP SCH (18:00)
[2020-07-29] MEDS: Azithromycin 500 MG in 0.9 % Sodium Chloride 250 ML IVPB SCH (18:06)
[2020-07-30] MEDS: *HR* Heparin 5,000 UNIT/ML VIAL SQ SCH ×2 (05:55→16:52)
[2020-07-30 06:33] LABS: Basophils % 0.2 %; Hemoglobin 14.5 g/dL (11.5-15.4); Immature Granulocytes % 0.4 % (0-4); Lymphocytes % 5.4 %; Mean Corpuscular HGB Conc 30.2 g/dL (31.6-35.5); Mean Corpuscular Hemoglobin 30.9 pg (28.0-33.3); Mean Corpuscular Volume 102.3 fL (83.0-100.0); Mean Platelet Volume 11.3 fL (9.4-12.4); Monocytes # 0.8 K/mcL (0.0-1.3); Neutrophils # 10.4 K/mcL (1.6-8.9); Platelet Count 174 K/mcL (140-400); Red Blood Count 4.69 M/mcL (3.82-4.97); Red Cell Distribution Width 13.9 % (11.5-14.5)
[2020-07-30 06:35] LABS: Lymphocytes # 0.6 K/mcL (0.6-4.6); White Blood Count 11.9 K/mcL (4.3-11.1)
[2020-07-30 06:53] LABS: Alanine Aminotransferase 49 Units/L (7-52); Albumin 3.5 g/dL (3.5-5.7); Albumin/Globulin Ratio 1.3 (1.1-2.2); Alkaline Phosphatase 73 Units/L (34-104); Aspartate Amino Transferase 48 Units/L (13-39); BUN/Creatinine Ratio 39 (6-26); Bilirubin,Total 0.3 mg/dL (0.3-1.0); Blood Urea Nitrogen 24 mg/dL (8-23); Calcium 9.2 mg/dL (8.6-10.3); Carbon Dioxide 32 mEq/L (23-29); Chloride 103 mEq/L (98-107); Globulin 2.8 g/dL (2.4-3.5); Glucose 114 mg/dL (70-105); Osmolality,Calculated 293 (280-300); Potassium 4.5 mEq/L (3.5-5.1); Sodium 139 mEq/L (136-145); Total Protein 6.3 g/dL (6.4-8.9); eGFR For African Americans > 60 (> 60); eGFR For Non-African Americans > 60 (> 60)
[2020-07-30] MEDS: Folic Acid 1 MG TABLET PO SCH (07:32)
[2020-07-30] MEDS: Ascorbic Acid 500 MG TABLET PO SCH (07:32)
[2020-07-30] MEDS: Dexamethasone Sodium Phos/PF 10 MG/ML VIAL IVP SCH (07:33)
[2020-07-30] MEDS: Aspirin Enteric Coated 81 MG Tablet PO SCH (07:33)
[2020-07-30] MEDS: Azithromycin 500 MG in 0.9 % Sodium Chloride 250 ML IVPB SCH (16:52)
[2020-07-31 04:24] LABS: Basophils % 0.1 %; Hematocrit 42.7 % (35.3-44.9); Hemoglobin 13.4 g/dL (11.5-15.4); Immature Granulocytes % 0.7 % (0-4); Lymphocytes # 0.5 K/mcL (0.6-4.6); Lymphocytes % 4.4 %; Mean Corpuscular HGB Conc 31.4 g/dL (31.6-35.5); Mean Corpuscular Hemoglobin 31.6 pg (28.0-33.3); Mean Corpuscular Volume 100.7 fL (83.0-100.0); Mean Platelet Volume 10.7 fL (9.4-12.4); Monocytes # 0.9 K/mcL (0.0-1.3); Monocytes % 7.7 %; Neutrophils # 9.6 K/mcL (1.6-8.9); Platelet Count 186 K/mcL (140-400); Red Blood Count 4.24 M/mcL (3.82-4.97); Segmented Neutrophils % 87.1 %
[2020-07-31 04:55] LABS: Alanine Aminotransferase 68 Units/L (7-52); Albumin 3.1 g/dL (3.5-5.7); Albumin/Globulin Ratio 1.1 (1.1-2.2); Alkaline Phosphatase 63 Units/L (34-104); Aspartate Amino Transferase 55 Units/L (13-39); BUN/Creatinine Ratio 34 (6-26); Bilirubin,Total 0.4 mg/dL (0.3-1.0); Blood Urea Nitrogen 22 mg/dL (8-23); Calcium 8.8 mg/dL (8.6-10.3); Carbon Dioxide 31 mEq/L (23-29); Chloride 100 mEq/L (98-107); Globulin 2.8 g/dL (2.4-3.5); Glucose 103 mg/dL (70-105); Osmolality,Calculated 288 (280-300); Potassium 4.6 mEq/L (3.5-5.1); Sodium 137 mEq/L (136-145); Total Protein 5.9 g/dL (6.4-8.9); eGFR For African Americans > 60 (> 60); eGFR For Non-African Americans > 60 (> 60)
[2020-07-31] MEDS: *HR* Heparin 5,000 UNIT/ML VIAL SQ SCH ×2 (05:08→16:26)
[2020-07-31] MEDS: Aspirin Enteric Coated 81 MG Tablet PO SCH (07:25)
[2020-07-31] MEDS: Ascorbic Acid 500 MG TABLET PO SCH (07:25)
[2020-07-31] MEDS: Dexamethasone Sodium Phos/PF 10 MG/ML VIAL IVP SCH (07:25)
[2020-07-31] MEDS: Folic Acid 1 MG TABLET PO SCH (07:25)
[2020-07-31] MEDS: Azithromycin 500 MG in 0.9 % Sodium Chloride 250 ML IVPB SCH (16:26)
[2020-08-01 04:31] LABS: Basophils % 0.2 %; Hematocrit 41.4 % (35.3-44.9); Hemoglobin 13.2 g/dL (11.5-15.4); Lymphocytes # 0.5 K/mcL (0.6-4.6); Lymphocytes % 5.5 %; Mean Corpuscular HGB Conc 31.9 g/dL (31.6-35.5); Mean Corpuscular Hemoglobin 31.1 pg (28.0-33.3); Mean Corpuscular Volume 97.6 fL (83.0-100.0); Monocytes # 0.8 K/mcL (0.0-1.3); Monocytes % 8.5 %; Platelet Count 177 K/mcL (140-400); Red Blood Count 4.24 M/mcL (3.82-4.97); Red Cell Distribution Width 13.8 % (11.5-14.5); Segmented Neutrophils % 84.8 %; White Blood Count 9.4 K/mcL (4.3-11.1)
[2020-08-01 05:04] LABS: Alanine Aminotransferase 73 Units/L (7-52); Albumin 2.9 g/dL (3.5-5.7); Albumin/Globulin Ratio 1.1 (1.1-2.2); Alkaline Phosphatase 64 Units/L (34-104); Aspartate Amino Transferase 53 Units/L (13-39); BUN/Creatinine Ratio 33 (6-26); Bilirubin,Total 0.4 mg/dL (0.3-1.0); Blood Urea Nitrogen 20 mg/dL (8-23); Calcium 8.2 mg/dL (8.6-10.3); Carbon Dioxide 25 mEq/L (23-29); Chloride 102 mEq/L (98-107); Globulin 2.7 g/dL (2.4-3.5); Glucose 113 mg/dL (70-105); Osmolality,Calculated 283 (280-300); Potassium 4.8 mEq/L (3.5-5.1); Sodium 135 mEq/L (136-145); Total Protein 5.6 g/dL (6.4-8.9); eGFR For African Americans > 60 (> 60); eGFR For Non-African Americans > 60 (> 60)
[2020-08-01] MEDS: *HR* Heparin 5,000 UNIT/ML VIAL SQ SCH (05:10)
[2020-08-01] MEDS: Dexamethasone Sodium Phos/PF 10 MG/ML VIAL IVP SCH (08:52)
[2020-08-01] MEDS: Ascorbic Acid 500 MG TABLET PO SCH (08:52)
[2020-08-01] MEDS: Folic Acid 1 MG TABLET PO SCH (08:52)
[2020-08-01] MEDS: Aspirin Enteric Coated 81 MG Tablet PO SCH (08:52)
[2020-08-01 12:11] VITALS: BP 118/72
[2020-08-01] MEDS ORDERED: Acetaminophen 325 MG TABLET PO ONE (12:41)
[2020-08-01] MEDS ORDERED: Azithromycin 250 MG TABLET PO SCH (18:00)
[2020-08-03] MEDS ORDERED: *HR* Methotrexate 2.5 MG TABLET PO SCH (12:00)
== END 2020-08-01 17:40 | disposition home health service (06) | DRG 177 ==
LOC: EMEROOARM 14:17 → 2NENU 14:17 → SUATTDRO 18:17 → 2NENU 18:50
PROVIDERS: ADMIT Student in an Organized Health Care Education/Training Program; ATTEND Internal Medicine

== ENCOUNTER 2020-08-03 23:02 | Observation (INO) ==
[2020-08-03] MEDS ORDERED: Isovue-370 500 ML BOTTLE IVP ONE (23:13)
[2020-08-03] MEDS ORDERED: 0.9 % Sodium Chloride 1,000 ML IVC ONE (23:22)
[2020-08-03 23:34] LABS: Basophils % 0.3 %; Eosinophils % 0.1 %; Hematocrit 49.4 % (35.3-44.9); Immature Granulocytes % 1.1 % (0-4); Lymphocytes % 6.9 %; Mean Corpuscular HGB Conc 31.4 g/dL (31.6-35.5); Mean Corpuscular Hemoglobin 30.8 pg (28.0-33.3); Mean Platelet Volume 10.5 fL (9.4-12.4); Monocytes # 1.6 K/mcL (0.0-1.3); Monocytes % 11.4 %; Neutrophils # 11.2 K/mcL (1.6-8.9); Platelet Count 224 K/mcL (140-400); Red Blood Count 5.04 M/mcL (3.82-4.97); Red Cell Distribution Width 13.9 % (11.5-14.5); Segmented Neutrophils % 80.2 %
[2020-08-03 23:36] LABS: Hemoglobin 15.5 g/dL (11.5-15.4)
[2020-08-03] MEDS ORDERED: DilTIAZem 50 MG/50 ML IV.SOLN IVC SCH (23:45)
[2020-08-03 23:52] LABS: BUN/Creatinine Ratio 32 (6-26); Blood Urea Nitrogen 33 mg/dL (8-23); Calcium 9.2 mg/dL (8.6-10.3); Carbon Dioxide 31 mEq/L (23-29); Chloride 91 mEq/L (98-107); Glucose 104 mg/dL (70-105); Osmolality,Calculated 280 (280-300); Potassium 4.5 mEq/L (3.5-5.1); Sodium 131 mEq/L (136-145); eGFR For African Americans > 60 (> 60); eGFR For Non-African Americans 52 (> 60)
[2020-08-03 23:55] LABS: Troponin I 0.04 ng/mL (< 0.04)
[2020-08-04] MEDS ORDERED: 0.9 % Sodium Chloride 1,000 ML IVC ONE ×2 (00:16→01:53)
[2020-08-04] MEDS ORDERED: Amiodarone Premix 360 MG/200 ML BAG IVC ONE ×2 (02:07→08:36)
[2020-08-04] MEDS ORDERED: Amiodarone Premix 150 MG/100 ML BAG IVPB ONE ×2 (02:07→02:10)
[2020-08-04] MEDS ORDERED: Ondansetron 4 MG/2 ML VIAL IVP PRN (04:11)
[2020-08-04] MEDS ORDERED: Acetaminophen 325 MG TABLET PO PRN (04:11)
[2020-08-04] MEDS ORDERED: *HR* Enoxaparin 80 MG/0.8 ML SYRINGE SQ ONE (04:15)
[2020-08-04] MEDS ORDERED: Perflutren Lipid Microsphere 1.3 ML in 0.9 % Sodium Chloride 8.7 ML IVP PRN (04:31)
[2020-08-04] MEDS: *HR* Digoxin 0.5 MG/2 ML AMPUL IVP SCH ×2 (06:09→09:18)
[2020-08-04] MEDS ORDERED: *HR* Metoprolol 5 MG/5 ML VIAL IVP STA (07:53)
[2020-08-04] MEDS ORDERED: *HR* Midazolam HCl 2 MG/2 ML VIAL IVP ONE (08:40)
[2020-08-04] MEDS ORDERED: Amiodarone Premix 360 MG/200 ML BAG IVC SCH (09:30)
[2020-08-04 09:48] LABS: Hematocrit 43.3 % (35.3-44.9); Immature Granulocytes % 1.2 % (0-4); Lymphocytes % 4.6 %; Mean Corpuscular HGB Conc 30.7 g/dL (31.6-35.5); Mean Corpuscular Hemoglobin 30.6 pg (28.0-33.3); Mean Corpuscular Volume 99.5 fL (83.0-100.0); Mean Platelet Volume 10.6 fL (9.4-12.4); Platelet Count 196 K/mcL (140-400); Red Blood Count 4.35 M/mcL (3.82-4.97); Red Cell Distribution Width 13.9 % (11.5-14.5); Segmented Neutrophils % 84.1 %; White Blood Count 15.8 K/mcL (4.3-11.1)
[2020-08-04 09:49] LABS: Basophils # 0.1 K/mcL (0.0-0.2); Basophils % 0.3 %; Eosinophils % 0.1 %; Lymphocytes # 0.7 K/mcL (0.6-4.6); Monocytes # 1.5 K/mcL (0.0-1.3); Monocytes % 9.7 %; Neutrophils # 13.3 K/mcL (1.6-8.9)
[2020-08-04 09:55] LABS: Hemoglobin 13.3 g/dL (11.5-15.4)
[2020-08-04 10:07] LABS: Alanine Aminotransferase 205 Units/L (7-52); Albumin 2.6 g/dL (3.5-5.7); Alkaline Phosphatase 55 Units/L (34-104); Aspartate Amino Transferase 162 Units/L (13-39); BUN/Creatinine Ratio 38 (6-26); Bilirubin,Total 0.5 mg/dL (0.3-1.0); Blood Urea Nitrogen 23 mg/dL (8-23); Carbon Dioxide 27 mEq/L (23-29); Chloride 102 mEq/L (98-107); Globulin 2.5 g/dL (2.4-3.5); Glucose 91 mg/dL (70-105); Magnesium 2.1 mg/dL (1.6-2.6); Osmolality,Calculated 279 (280-300); Phosphorous 3.5 mg/dL (2.7-4.5); Potassium 4.4 mEq/L (3.5-5.1); Sodium 133 mEq/L (136-145); Total Protein 5.1 g/dL (6.4-8.9); eGFR For African Americans > 60 (> 60); eGFR For Non-African Americans > 60 (> 60)
[2020-08-04 10:12] LABS: INR 1.3; Prothrombin Time 14.7 Seconds (9.4-12.1)
[2020-08-04 10:14] LABS: Activated Partial Thrombo Time 34.4 Seconds (26.0-36.0)
[2020-08-04 10:33] LABS: ABG Base Excess 3 mEq/L (-2 to 3); ABG HCO3 30 mEq/L (21-27); ABG Oxygen Saturation 98 % (95-98); ABG PCO2 56 mmHg (35-45); ABG PH 7.34 pH Units (7.32-7.45); ABG PO2 106 mmHg (85-104); ABG TCO2 32 mEq/L (20-26)
[2020-08-04] MEDS ORDERED: Ipratropium 1 PUFF INHALER IH PRN (12:16)
[2020-08-04] MEDS: *HR* Rivaroxaban 10 MG TABLET PO SCH (16:23)
[2020-08-05 06:14] LABS: Hematocrit 41.6 % (35.3-44.9); Hemoglobin 12.9 g/dL (11.5-15.4); Mean Corpuscular Hemoglobin 31.3 pg (28.0-33.3); Mean Platelet Volume 10.2 fL (9.4-12.4); Platelet Count 194 K/mcL (140-400); Red Blood Count 4.12 M/mcL (3.82-4.97); Red Cell Distribution Width 13.8 % (11.5-14.5); White Blood Count 9.3 K/mcL (4.3-11.1)
[2020-08-05 06:32] LABS: BUN/Creatinine Ratio 38 (6-26); Blood Urea Nitrogen 22 mg/dL (8-23); Calcium 8.5 mg/dL (8.6-10.3); Carbon Dioxide 28 mEq/L (23-29); Chloride 102 mEq/L (98-107); Glucose 56 mg/dL (70-105); Magnesium 2.3 mg/dL (1.6-2.6); Osmolality,Calculated 281 (280-300); Potassium 4.6 mEq/L (3.5-5.1); Sodium 135 mEq/L (136-145); eGFR For African Americans > 60 (> 60); eGFR For Non-African Americans > 60 (> 60)
[2020-08-05] MEDS ORDERED: Dextrose Gel 15 GM/37.5 ML TUBE PO PRN ×2 (07:37)
[2020-08-05] MEDS ORDERED: D5% in Water 1,000 ML IVC PRN (07:37)
[2020-08-05] MEDS ORDERED: *HR* Dextrose 50 % in Water (Vial) 50 ML VIAL IVP PRN (07:37)
[2020-08-05] MEDS ORDERED: Furosemide 40 MG/4 ML VIAL IVP ONE (09:37)
[2020-08-05] MEDS: Aspirin Enteric Coated 81 MG Tablet PO SCH (11:10)
[2020-08-05] MEDS: Ipratropium 1 PUFF INHALER IH SCH ×3 (16:01→23:12)
[2020-08-05] MEDS: Dexamethasone 4 MG/ML VIAL IVP SCH (16:02)
[2020-08-05] MEDS: Levalbuterol 1 PUFF INHALER IH SCH ×3 (16:02→23:13)
[2020-08-05] MEDS: *HR* Rivaroxaban 10 MG TABLET PO SCH (16:03)
[2020-08-06] MEDS: Ipratropium 1 PUFF INHALER IH SCH ×6 (04:04→22:59)
[2020-08-06] MEDS: Levalbuterol 1 PUFF INHALER IH SCH ×6 (04:04→22:59)
[2020-08-06] MEDS: Dexamethasone 4 MG/ML VIAL IVP SCH (08:49)
[2020-08-06] MEDS: Folic Acid 1 MG TABLET PO SCH (08:49)
[2020-08-06] MEDS: Aspirin Enteric Coated 81 MG Tablet PO SCH (08:50)
[2020-08-06] MEDS: cefTRIAXone 1,000 MG in Water for inj. (sterile) 10 ML IVP SCH (08:50)
[2020-08-06 10:21] LABS: Basophils % 0.2 %; Hematocrit 43.7 % (35.3-44.9); Hemoglobin 13.7 g/dL (11.5-15.4); Immature Granulocytes % 1.2 % (0-4); Lymphocytes # 0.6 K/mcL (0.6-4.6); Lymphocytes % 9.3 %; Mean Corpuscular HGB Conc 31.4 g/dL (31.6-35.5); Mean Corpuscular Hemoglobin 31.5 pg (28.0-33.3); Mean Corpuscular Volume 100.5 fL (83.0-100.0); Mean Platelet Volume 10.6 fL (9.4-12.4); Monocytes # 0.2 K/mcL (0.0-1.3); Monocytes % 2.6 %; Neutrophils # 5.7 K/mcL (1.6-8.9); Platelet Count 231 K/mcL (140-400); Red Blood Count 4.35 M/mcL (3.82-4.97); Red Cell Distribution Width 13.4 % (11.5-14.5); Segmented Neutrophils % 86.7 %; White Blood Count 6.6 K/mcL (4.3-11.1)
[2020-08-06 10:37] LABS: BUN/Creatinine Ratio 38 (6-26); Blood Urea Nitrogen 28 mg/dL (8-23); Calcium 8.7 mg/dL (8.6-10.3); Carbon Dioxide 31 mEq/L (23-29); Chloride 98 mEq/L (98-107); Glucose 231 mg/dL (70-105); Magnesium 2.5 mg/dL (1.6-2.6); Osmolality,Calculated 295 (280-300); Phosphorous 3.4 mg/dL (2.7-4.5); Potassium 4.8 mEq/L (3.5-5.1); Sodium 136 mEq/L (136-145); eGFR For African Americans > 60 (> 60); eGFR For Non-African Americans > 60 (> 60)
[2020-08-06] MEDS ORDERED: Furosemide 20 MG/2 ML VIAL IVP ONE (11:56)
[2020-08-06] MEDS: *HR* Rivaroxaban 10 MG TABLET PO SCH (17:19)
[2020-08-06] MEDS: Doxycycline 100 MG in 0.9 % Sodium Chloride Mini Bag 100 ML IVPB SCH (17:20)
[2020-08-06] MEDS: Insulin LISPRO 300 UNITS/3 ML VIAL SUBQ SCH ×2 (18:07→18:51)
[2020-08-07] MEDS: Levalbuterol 1 PUFF INHALER IH SCH ×6 (03:38→23:37)
[2020-08-07] MEDS: Ipratropium 1 PUFF INHALER IH SCH ×6 (03:38→23:37)
[2020-08-07] MEDS: Doxycycline 100 MG in 0.9 % Sodium Chloride Mini Bag 100 ML IVPB SCH ×2 (05:14→17:55)
[2020-08-07 08:18] LABS: BUN/Creatinine Ratio 39 (6-26); Blood Urea Nitrogen 26 mg/dL (8-23); Calcium 8.8 mg/dL (8.6-10.3); Carbon Dioxide 33 mEq/L (23-29); Chloride 99 mEq/L (98-107); Glucose 133 mg/dL (70-105); Magnesium 2.3 mg/dL (1.6-2.6); Osmolality,Calculated 291 (280-300); Phosphorous 3.4 mg/dL (2.7-4.5); Potassium 4.5 mEq/L (3.5-5.1); Sodium 137 mEq/L (136-145); eGFR For African Americans > 60 (> 60); eGFR For Non-African Americans > 60 (> 60)
[2020-08-07] MEDS: Insulin LISPRO 300 UNITS/3 ML VIAL SUBQ SCH ×4 (08:26→21:33)
[2020-08-07] MEDS: cefTRIAXone 1,000 MG in Water for inj. (sterile) 10 ML IVP SCH (08:35)
[2020-08-07] MEDS: Dexamethasone 4 MG/ML VIAL IVP SCH (08:37)
[2020-08-07] MEDS: Aspirin Enteric Coated 81 MG Tablet PO SCH (08:37)
[2020-08-07] MEDS: Folic Acid 1 MG TABLET PO SCH (08:37)
[2020-08-07] MEDS: *HR* Rivaroxaban 10 MG TABLET PO SCH (17:55)
[2020-08-07 19:14] VITALS: BP 126/90
== END 2020-08-08 02:00 | disposition critical access hospital (66) ==
LOC: EMEROOARM 23:02 → 2NENU 23:02 → SUATTDRO 08-04 02:45 → 2NENU 08-04 05:32
PROVIDERS: ADMIT Internal Medicine; ATTEND Student in an Organized Health Care Education/Training Program